=== PATIENT | female | born 1970 | race Caucasian/White ===

== ENCOUNTER → 2016-11-28 | Outpatient (CLI) | payer OTHER ==
[~2016-11-28] MED LIST: OMEP20TA62 PO
[2016-11-28 19:00] LABS: HEMOGLOBIN 13.5 g/dL (11.7-16.4)
[2016-11-28 19:13] LABS: ASPARTATE AMINO TRANSFERASE 16 U/L (15-37); BLOOD UREA NITROGEN 39 mg/dL (7-18)
== END | disposition home or self-care (01) ==
LOC: RAD 17:02
PROVIDERS: ATTEND Surgery
DX: N28.1 Cyst of kidney, acquired (principal); K29.60 Other gastritis without bleeding; R53.81 Other malaise; R53.83 Other fatigue; Z90.3 Acquired absence of stomach [part of]; Z90.49 Acquired absence of other specified parts of digestive tract; Z98.890 Other specified postprocedural states
CPT/HCPCS: 36415; 74176; 80053; 85025

== ENCOUNTER 2016-12-03 11:30 | Inpatient (IN) | payer OTHER ==
[~2016-12-03] VITALS: Ht 170.2 cm; Wt 96.0 kg
[2016-12-03] MEDS: PLEASE ENTER ALLERGIES MC SCH ×4 (13:00→19:48)
[2016-12-03] MEDS ORDERED: SODIUM CHLORIDE FLUSH 10ML SYR IVF ONE (13:00)
[2016-12-03] MEDS ORDERED: FAMOTIDINE 20 MG/2 ML IVP ONE (13:00)
[2016-12-03] MEDS ORDERED: HYDROmorphone 1 MG/ML, 1ML IVPush PRN (13:00)
[2016-12-03] MEDS ORDERED: SODIUM CHLORIDE 0.9% 1,000ML IVBOLUS ONE (13:00)
[2016-12-03] MEDS ORDERED: ONDANSETRON 2MG/ML, 2ML IVPush ONE (13:00)
[2016-12-03 13:22] LABS: ASPARTATE AMINO TRANSFERASE 16 U/L (15-37); BLOOD UREA NITROGEN 46 mg/dL (7-18)
[2016-12-03] MEDS ORDERED: HYDROmorphone 1 MG/ML, 1ML ONE (13:42)
[2016-12-03] MEDS ORDERED: FAMOTIDINE 20 MG/2 ML ONE (13:43)
[2016-12-03] MEDS ORDERED: ONDANSETRON 2MG/ML, 2ML ONE (13:43)
[2016-12-03 14:41] LABS: ICTOTEST NEGATIVE
[2016-12-03] MEDS ORDERED: CEFTRIAXONE PMX 1GM/50ML 50 ML IV ONE (15:00)
[2016-12-03] MEDS ORDERED: PROMETHAZINE 25 MG/ML, 1ML IM ONE (15:00)
[2016-12-03] MEDS ORDERED: HYDROcodone/APAP 5/325 TABLET PO PRN (16:00)
[2016-12-03] MEDS ORDERED: DOCUSATE 100 MG CAPSULE PO PRN (16:00)
[2016-12-03] MEDS ORDERED: POLYETHYLENE GLYCOL 17 GM PACKET PO PRN (16:00)
[2016-12-03] MEDS ORDERED: ACETAMINOPHEN 325 MG TABLET PO PRN (16:00)
[2016-12-03] MEDS ORDERED: LABETALOL 5MG/ML, 20ML IV PRN (16:00)
[2016-12-03] MEDS ORDERED: ONDANSETRON 2MG/ML, 2ML IVP PRN (16:00)
[2016-12-03] MEDS ORDERED: BISACODYL 10 MG SUPP PR PRN (16:00)
[2016-12-03] MEDS ORDERED: OMEP20TA62 PO (16:13)
[2016-12-03] MEDS ORDERED: PROMETHAZINE 25 MG/ML, 1ML ONE (16:21)
[2016-12-03] MEDS ORDERED: CEFTRIAXONE PMX 1GM/50ML 50 ML ONE (16:23)
[2016-12-03 16:36] LABS: POTASSIUM,URINE RANDOM 28 mmol/L
[2016-12-03] MEDS ORDERED: CEFTRIAXONE PMX 1GM/50ML 50 ML IV SCH (18:00)
[2016-12-03] MEDS: SODIUM CHLORIDE 0.9% 1,000 ML IV SCH (19:47)
[2016-12-03] MEDS: HEPARIN 5,000 UNITS/ML, 1ML SQ SCH (20:58)
[2016-12-03 21:45] VITALS: BP 113/75
[2016-12-03] MEDS: MORPHINE SULFATE 4 MG/ML, 1ML IVPush PRN (23:08)
[2016-12-04 02:25] VITALS: BP 90/58
[2016-12-04] MEDS: SODIUM CHLORIDE 0.9% 1,000 ML IV SCH ×3 (05:11→22:27)
[2016-12-04] MEDS: HEPARIN 5,000 UNITS/ML, 1ML SQ SCH ×3 (05:18→22:27)
[2016-12-04 05:49] LABS: BLOOD UREA NITROGEN 40 mg/dL (7-18)
[2016-12-04 08:20] VITALS: BP 90/59
[2016-12-04 12:51] VITALS: BP 93/63
[2016-12-04] MEDS: CEFTRIAXONE PMX 1GM/50ML 50 ML IV SCH (16:17)
[2016-12-04 18:36] VITALS: BP 90/55
[2016-12-05 02:00] VITALS: BP 93/65
[2016-12-05] MEDS: MORPHINE SULFATE 4 MG/ML, 1ML IVPush PRN (03:51)
[2016-12-05] MEDS: HEPARIN 5,000 UNITS/ML, 1ML SQ SCH ×3 (04:54→22:01)
[2016-12-05 05:37] LABS: BLOOD UREA NITROGEN 30 mg/dL (7-18)
[2016-12-05] MEDS ORDERED: PROPOFOL 10 MG/ML, 20ML ONE (07:04)
[2016-12-05] MEDS ORDERED: NEOSTIGMINE 1 MG/ML, 10ML ONE (07:04)
[2016-12-05] MEDS ORDERED: MIDAZOLAM 1 MG/ML, 2ML ONE (07:04)
[2016-12-05] MEDS ORDERED: ROCURONIUM 10 MG/ML ONE (07:04)
[2016-12-05] MEDS ORDERED: FENTANYL PF 100 MCG/2ML ONE (07:04)
[2016-12-05] MEDS ORDERED: GLYCOPYRROLATE 0.2MG/1ML ONE (07:04)
[2016-12-05] MEDS ORDERED: DEXAMETHASONE 4 MG/ML, 1ML ONE (07:04)
[2016-12-05] MEDS ORDERED: SUCCINYLCHOLINE 20 MG/ML, 10ML ONE (07:04)
[2016-12-05] MEDS ORDERED: ONDANSETRON 2MG/ML, 2ML ONE ×2 (07:04)
[2016-12-05] MEDS ORDERED: ACETAMINOPHEN 325 MG TABLET PO PRN (08:00)
[2016-12-05] MEDS ORDERED: ALBUTEROL SULFATE 2.5 MG/3 ML NPPB PRN (08:00)
[2016-12-05] MEDS ORDERED: LABETALOL 5MG/ML, 20ML IV PRN (08:00)
[2016-12-05] MEDS ORDERED: hydrALAzine 20 MG/ML, 1ML IV PRN (08:00)
[2016-12-05] MEDS ORDERED: OXYcodone 5 MG/5 ML ORAL.SOL UDC PO PRN (08:00)
[2016-12-05] MEDS ORDERED: MIDAZOLAM 1 MG/ML, 2ML IV PRN (08:00)
[2016-12-05] MEDS ORDERED: ONDANSETRON 2MG/ML, 2ML IVPush PRN (08:00)
[2016-12-05] MEDS ORDERED: HYDROmorphone 1 MG/ML, 1ML IV PRN (08:00)
[2016-12-05] MEDS ORDERED: METOPROLOL 1 MG/ML, 5ML IV PRN (08:00)
[2016-12-05] MEDS ORDERED: FENTANYL PF 100 MCG/2ML IV PRN (08:00)
[2016-12-05] MEDS ORDERED: PROMETHAZINE 25 MG/ML, 1ML IV PRN (08:00)
[2016-12-05] MEDS ORDERED: EPHEDRINE 50 MG/ML, 1ML IVPush PRN (08:00)
[2016-12-05] MEDS: SODIUM CHLORIDE 0.9% 1,000 ML IV SCH (08:57)
[2016-12-05 10:48] VITALS: BP 118/82
[2016-12-05] MEDS: SODIUM CHLORIDE 0.45% 1,000 ML IV SCH ×2 (11:26→21:30)
[2016-12-05 13:12] VITALS: BP 111/74
[2016-12-05] MEDS: CEFTRIAXONE PMX 1GM/50ML 50 ML IV SCH (16:17)
[2016-12-05 21:05] VITALS: BP 117/82
[2016-12-06 03:00] VITALS: BP 95/65
[2016-12-06] MEDS: HEPARIN 5,000 UNITS/ML, 1ML SQ SCH (06:22)
[2016-12-06] MEDS: SODIUM CHLORIDE 0.45% 1,000 ML IV SCH (06:23)
[2016-12-06 06:54] VITALS: BP 111/70
[2016-12-06] MEDS ORDERED: AMOX1TAB64 PO (11:12)
[2016-12-06 11:30] VITALS: BP 110/62
== END 2016-12-06 11:54 | disposition home or self-care (01) | DRG 393 ==
LOC: ED 12:16 → EDIP 14:57 → 4NOR 17:44
PROVIDERS: ADMIT Hospitalist; ATTEND Hospitalist
PROC: 0D768ZZ Dilation of Stomach, Via Natural or Artificial Opening Endoscopic (ICD-10-PCS; principal; 2016-12-03)
PROC: 0T9B70Z Drainage of Bladder with Drainage Device, Via Natural or Artificial Opening (ICD-10-PCS; 2016-12-03)
DX: K95.09 Other complications of gastric band procedure (principal); N17.0 Acute kidney failure with tubular necrosis; N39.0 Urinary tract infection, site not specified; E87.2 Acidosis; E87.0 Hyperosmolality and hypernatremia; Q60.0 Renal agenesis, unilateral; N18.4 Chronic kidney disease, stage 4 (severe); E86.0 Dehydration; Y83.8 Other surgical procedures as the cause of abnormal reaction of the patient, or of later complication, without mention of misadventure at the time of the procedure; I12.9 Hypertensive chronic kidney disease with stage 1 through stage 4 chronic kidney disease, or unspecified chronic kidney disease; Z98.84 Bariatric surgery status; Y92.9 Unspecified place or not applicable; Z90.49 Acquired absence of other specified parts of digestive tract; Z90.710 Acquired absence of both cervix and uterus
CPT/HCPCS: 36415; 74020; 76770; 80048; 80053; 81001; 82436; 82570; 83690; 84133; 84300; 85025; 87086; 96361; 96365; 96366; 96372; 96375; J0696; J1100; J1170; J1644; J2250; J2405; J2550; J2704; J2710; J3010; J3490; J0330; J7030; S0028

== ENCOUNTER → 2017-10-23 | Outpatient (CLI) | payer OTHER ==
[~2017-10-23] MED LIST changes: +AMOX1TAB64 PO; +BIOT25005 PO; +CALC0.25 PO; +CYAN250013 PO; +ERGO500017 PO; +MULT-224 PO; +MULT-672 PO
[2017-10-23 11:15] LABS: BASOPHILS # (AUTO) 0.03 x10^3/uL (0-0.1); BASOPHILS % (AUTO) 1 % (0-1); EOSINOPHILS # (AUTO) 0.08 x10^3/uL (0-0.4); EOSINOPHILS % (AUTO) 2 % (1-7); LYMPHOCYTES # (AUTO) 1.49 x10^3/uL (1-3.4); LYMPHOCYTES % (AUTO) 27 % (22-44); MD NO; MEAN CORPUSCULAR HEMOGLOBIN 31.9 pg (27.0-34.8); MEAN CORPUSCULAR HGB CONC 33.5 g/dL (32.4-35.8); MEAN CORPUSCULAR VOLUME 95.2 fL (80-100); MEAN PLATELET VOLUME 8.4 fL (7.4-10.4); MONOCYTES # (AUTO) 0.34 x10^3/uL (0.2-0.8); MONOCYTES % (AUTO) 6 % (2-9); NEUTROPHILS # (AUTO) 3.57 x10^3/uL (1.8-6.8); NEUTROPHILS % (AUTO) 65 % (42-75); PLATELET COUNT 227 x10^3/uL (130-400); RED BLOOD COUNT 3.52 x10^6/uL (3.82-5.3); RED CELL DISTRIBUTION WIDTH 13.8 % (9.6-15.2)
[2017-10-23 11:28] LABS: ALBUMIN 3.9 g/dL (3.4-5.0); ANION GAP 7 mmol/L (5-15); CALCIUM 8.9 mg/dL (8.5-10.1); CHLORIDE 115 mmol/L (98-107)
[2017-10-23 11:31] LABS: INTERNATIONAL NORMALIZED RATIO 1.02 (0.93-1.1); PROTHROMBIN TIME 10.5 Seconds (9.6-11.5)
[2017-10-23 11:32] LABS: ALANINE AMINOTRANSFERASE 21 U/L (12-78); ALKALINE PHOSPHATASE 55 U/L (45-117); BILIRUBIN,TOTAL 0.4 mg/dL (0.2-1.0); CREATININE 2.87 mg/dL (0.55-1.02); TOTAL PROTEIN 7.3 g/dL (6.4-8.2)
== END | disposition home or self-care (01) ==
LOC: STAR 10:15
PROVIDERS: ATTEND Surgery Vascular Surgery
DX: Z01.818 Encounter for other preprocedural examination (principal); R79.1 Abnormal coagulation profile
CPT/HCPCS: 36415; 80053; 85025; 85610; 85730; 93005

== ENCOUNTER 2017-10-31 21:54 | Emergency (ER) | payer OTHER ==
[~2017-10-31] VITALS: Ht 170.2 cm; Wt 63.5 kg
[2017-10-31 22:50] LABS: RAPID INFLUENZA A Negative (Negative); RAPID INFLUENZA B POSITIVE (Negative)
[2017-11-01] MEDS ORDERED: ACETAMINOPHEN 500 MG TABLET ONE (00:48)
[2017-11-01 00:54] VITALS: BP 124/82
[2017-11-01] MEDS ORDERED: ACETAMINOPHEN 500 MG TABLET PO ONE (01:00)
== END 2017-11-01 00:55 | disposition home or self-care (01) ==
LOC: ED 23:58
DX: J11.1 Influenza due to unidentified influenza virus with other respiratory manifestations (principal); Z90.49 Acquired absence of other specified parts of digestive tract; I10 Essential (primary) hypertension
CPT/HCPCS: 71046; 87400; 93005; 99285

== ENCOUNTER 2017-11-30 07:21 | Day surgery (SDC) | payer OTHER ==
[~2017-11-30] VITALS: Ht 171.4 cm; Wt 63.6 kg
[~2017-11-30 07:21] MED LIST changes: +BUPIVACAINE/PF 0.5% ONE; +HEPARIN 1,000 UNITS/ML, 10ML ONE
[2017-11-30] MEDS ORDERED: LIDOCAINE-MPF 1%, 2ML ONE (09:15)
[2017-11-30] MEDS ORDERED: SODIUM CHLORIDE 0.9% 1,000 ML IV SCH (09:16)
[2017-11-30 09:18] VITALS: BP 117/68
[2017-11-30] MEDS ORDERED: LIDOCAINE-MPF 1%, 2ML INFIL ONE (09:30)
[2017-11-30] MEDS ORDERED: SCOPOLAMINE PATCH, 1.5MG PATCH.TD72 TD ONE ×2 (10:44→12:23)
[2017-11-30] MEDS ORDERED: MIDAZOLAM 1 MG/ML, 2ML ONE (11:34)
[2017-11-30] MEDS ORDERED: FENTANYL PF 250 MCG/5ML ONE (11:38)
[2017-11-30] MEDS ORDERED: PROPOFOL 10 MG/ML, 20ML ONE (11:38)
[2017-11-30] MEDS ORDERED: CEFAZOLIN 1,000 MG ONE ×3 (11:39)
[2017-11-30] MEDS ORDERED: SODIUM CHLORIDE 0.9% PF 10ML ONE (11:39)
[2017-11-30] MEDS ORDERED: ROCURONIUM 10 MG/ML,10ML ONE (11:40)
[2017-11-30] MEDS ORDERED: GLYCOPYRROLATE 0.4 MG/2 ML, 2ML ONE (11:41)
[2017-11-30] MEDS ORDERED: NEOSTIGMINE 1 MG/ML, 10ML ONE (11:41)
[2017-11-30] MEDS ORDERED: ONDANSETRON 2MG/ML, 2ML ONE ×2 (11:42→12:32)
[2017-11-30] MEDS ORDERED: ONDANSETRON 2MG/ML, 2ML IVPush PRN (12:30)
[2017-11-30] MEDS ORDERED: hydrALAzine 20 MG/ML, 1ML IV PRN (12:30)
[2017-11-30] MEDS ORDERED: HYDROmorphone 1 MG/ML, 1ML IV PRN (12:30)
[2017-11-30] MEDS ORDERED: PROMETHAZINE 12.5 MG SUPP PR PRN (12:30)
[2017-11-30] MEDS ORDERED: PROMETHAZINE 25 MG/ML, 1ML IV PRN (12:30)
[2017-11-30] MEDS ORDERED: morphine SULFATE 10 MG/ML, 1ML IV PRN (12:30)
[2017-11-30] MEDS ORDERED: ACETAMINOPHEN 325 MG TABLET PO PRN (12:30)
[2017-11-30] MEDS ORDERED: OXYcodone 5 MG/5 ML ORAL.SOL UDC PO PRN (12:30)
[2017-11-30] MEDS ORDERED: METOCLOPRAMIDE 5 MG/ML, 2ML IV PRN (12:30)
[2017-11-30] MEDS ORDERED: LABETALOL 5MG/ML, 20ML IV PRN (12:30)
[2017-11-30] MEDS ORDERED: DEXAMETHASONE 4 MG/ML, 1ML ONE ×2 (12:32)
[2017-11-30] MEDS ORDERED: EPINEPHRINE 1 MG/ML, 1ML INFIL ONE (13:08)
[2017-11-30] MEDS ORDERED: METOCLOPRAMIDE 5 MG/ML, 2ML ONE (13:53)
[2017-11-30] MEDS ORDERED: OXYcodone 5 MG/5 ML ORAL.SOL UDC ONE (13:58)
[2017-11-30] MEDS ORDERED: FENTANYL PF 100 MCG/2ML ONE (14:02)
[2017-11-30] MEDS: FENTANYL PF 100 MCG/2ML IV PRN ×2 (14:03→14:20)
[2017-11-30] MEDS ORDERED: PROTAMINE SULFATE 10 MG/ML, 5ML ONE (14:55)
== END 2017-11-30 16:50 ==
LOC: OUT 07:21
PROVIDERS: ATTEND Surgery Vascular Surgery
DX: N19 Unspecified kidney failure (principal); Z88.6 Allergy status to analgesic agent
CPT/HCPCS: 36415; 36821; 49324; 80047; C1750; J0171; J0690; J1100; J1644; J2250; J2405; J2704; J2710; J2720; J2765; J3010; J3490; J7030

== ENCOUNTER 2017-12-02 12:54 | Emergency (ER) | payer OTHER ==
[~2017-12-02] VITALS: Ht 170.2 cm; Wt 66.7 kg
[~2017-12-02 12:54] MED LIST changes: -BUPIVACAINE/PF 0.5% ONE; -HEPARIN 1,000 UNITS/ML, 10ML ONE
[2017-12-02 12:55] VITALS: BP 134/87
[2017-12-02] MEDS ORDERED: SODIUM CHLORIDE FLUSH 10ML SYR IVF ONE (13:30)
[2017-12-02 13:42] LABS: BASOPHILS # (AUTO) 0.04 x10^3/uL (0-0.1); BASOPHILS % (AUTO) 1 % (0-1); EOSINOPHILS # (AUTO) 0.24 x10^3/uL (0-0.4); EOSINOPHILS % (AUTO) 3 % (1-7); LYMPHOCYTES # (AUTO) 2.12 x10^3/uL (1-3.4); LYMPHOCYTES % (AUTO) 26 % (22-44); MD NO; MEAN CORPUSCULAR HEMOGLOBIN 32.4 pg (27.0-34.8); MEAN CORPUSCULAR HGB CONC 33.3 g/dL (32.4-35.8); MEAN CORPUSCULAR VOLUME 97.1 fL (80-100); MEAN PLATELET VOLUME 8.6 fL (7.4-10.4); MONOCYTES # (AUTO) 0.47 x10^3/uL (0.2-0.8); MONOCYTES % (AUTO) 6 % (2-9); NEUTROPHILS # (AUTO) 5.39 x10^3/uL (1.8-6.8); NEUTROPHILS % (AUTO) 65 % (42-75); PLATELET COUNT 177 x10^3/uL (130-400); RED CELL DISTRIBUTION WIDTH 14.4 % (9.6-15.2)
[2017-12-02 13:51] LABS: ALANINE AMINOTRANSFERASE 14 U/L (12-78); ALBUMIN 3.9 g/dL (3.4-5.0); ANION GAP 6 mmol/L (5-15); CALCIUM 8.7 mg/dL (8.5-10.1); CHLORIDE 112 mmol/L (98-107); CREATININE 3.03 mg/dL (0.55-1.02)
[2017-12-02 13:53] LABS: ALKALINE PHOSPHATASE 57 U/L (45-117); BILIRUBIN,TOTAL 0.3 mg/dL (0.2-1.0); TOTAL PROTEIN 7.4 g/dL (6.4-8.2)
[2017-12-02] MEDS ORDERED: FLUORESCEIN OPHTHALMIC 1 MG STRIP EACHEYE ONE (15:30)
[2017-12-02] MEDS ORDERED: PROPARACAINE OPHTH 0.5%, 15ML EACHEYE ONE (15:30)
[2017-12-02] MEDS ORDERED: PROPARACAINE OPHTH 0.5%, 15ML ONE (15:36)
[2017-12-02] MEDS ORDERED: FLUORESCEIN OPHTHALMIC 1 MG STRIP ONE (15:36)
== END 2017-12-02 17:51 | disposition home or self-care (01) ==
LOC: ED 17:30
DX: H54.7 Unspecified visual loss (principal); T44.3X5A Adverse effect of other parasympatholytics [anticholinergics and antimuscarinics] and spasmolytics, initial encounter; Y92.89 Other specified places as the place of occurrence of the external cause; I10 Essential (primary) hypertension; G43.909 Migraine, unspecified, not intractable, without status migrainosus; Z90.49 Acquired absence of other specified parts of digestive tract
CPT/HCPCS: 36415; 80053; 85025; 99284

== ENCOUNTER 2018-04-04 10:16 | Emergency (ER) | payer OTHER ==
[~2018-04-04] VITALS: Ht 170.2 cm; Wt 62.9 kg
[2018-04-04] MEDS ORDERED: SODIUM CHLORIDE 0.9% 1,000ML IVBOLUS ONE (11:00)
[2018-04-04 11:18] LABS: BASOPHILS # (AUTO) 0.05 x10^3/uL (0-0.1); BASOPHILS % (AUTO) 0 % (0-1); EOSINOPHILS # (AUTO) 0.05 x10^3/uL (0-0.4); EOSINOPHILS % (AUTO) 1 % (1-7); LYMPHOCYTES # (AUTO) 0.98 x10^3/uL (1-3.4); LYMPHOCYTES % (AUTO) 9 % (22-44); MD NO; MEAN CORPUSCULAR HEMOGLOBIN 32.8 pg (27.0-34.8); MEAN CORPUSCULAR VOLUME 96.6 fL (80-100); MEAN PLATELET VOLUME 8.9 fL (7.4-10.4); MONOCYTES % (AUTO) 6 % (2-9); NEUTROPHILS # (AUTO) 9.36 x10^3/uL (1.8-6.8); NEUTROPHILS % (AUTO) 85 % (42-75); PLATELET COUNT 182 x10^3/uL (130-400); RED BLOOD COUNT 4.15 x10^6/uL (3.82-5.3); RED CELL DISTRIBUTION WIDTH 13.3 % (9.6-15.2)
[2018-04-04 11:23] LABS: ALANINE AMINOTRANSFERASE 26 U/L (12-78); ANION GAP 7 mmol/L (5-15); CALCIUM 9.1 mg/dL (8.5-10.1); CHLORIDE 114 mmol/L (98-107); CREATININE 3.18 mg/dL (0.55-1.02)
[2018-04-04 11:25] LABS: ALKALINE PHOSPHATASE 74 U/L (45-117); BILIRUBIN,TOTAL 0.8 mg/dL (0.2-1.0)
[2018-04-04 11:48] VITALS: BP 121/78
[2018-04-04 12:23] LABS: MICROSCOPIC AUTO
[2018-04-04 12:24] LABS: CULTURE INDICATED? NO
== END 2018-04-04 12:46 | disposition home or self-care (01) ==
LOC: ED 12:26
DX: K21.9 Gastro-esophageal reflux disease without esophagitis (principal); I10 Essential (primary) hypertension
CPT/HCPCS: 36415; 71045; 74220; 80053; 81001; 83690; 85025; 93005; 96360; 99285; J7030

== ENCOUNTER 2018-07-12 08:10 | Day surgery (SDC) | payer OTHER ==
[~2018-07-12] VITALS: Ht 170.2 cm; Wt 62.0 kg
[~2018-07-12 08:10] MED LIST changes: +ACET-1600 PO; +BOTOX INJ; +BUPIVACAINE/PF-EPI 0.5% 1:200K ONE; +HEPARIN 1,000 UNITS/ML, 10ML ONE; +LIQUID IRON; +PROTAMINE SULFATE 10 MG/ML, 5ML ONE
[2018-07-12 08:40] VITALS: BP 130/77
[2018-07-12] MEDS ORDERED: SODIUM CHLORIDE 0.9% 1,000 ML IV SCH (09:02)
[2018-07-12] MEDS ORDERED: DEXAMETHASONE 4 MG/ML, 5ML ONE (10:09)
[2018-07-12] MEDS ORDERED: ONDANSETRON 2MG/ML, 2ML ONE (10:09)
[2018-07-12] MEDS ORDERED: PROPOFOL 10 MG/ML, 20ML ONE (10:09)
[2018-07-12] MEDS ORDERED: MIDAZOLAM 1 MG/ML, 2ML ONE (10:24)
[2018-07-12] MEDS ORDERED: FENTANYL PF 100 MCG/2ML ONE ×2 (10:24→11:24)
[2018-07-12] MEDS ORDERED: HEPARIN 1,000 UNITS/ML, 10ML DIALYCATH ONE (10:32)
[2018-07-12] MEDS ORDERED: ACETAMINOPHEN 650 MG/20.3 ML UDC ONE (11:21)
[2018-07-12] MEDS ORDERED: OXYcodone 5 MG/5 ML ORAL.SOL UDC ONE (11:21)
[2018-07-12] MEDS ORDERED: PROMETHAZINE 25 MG/ML, 1ML IV PRN (11:30)
[2018-07-12] MEDS ORDERED: MEPERIDINE/PF 25MG/0.5ML IVPush PRN (11:30)
[2018-07-12] MEDS ORDERED: ACETAMINOPHEN 325 MG TABLET PO PRN (11:30)
[2018-07-12] MEDS ORDERED: PROMETHAZINE 12.5 MG SUPP PR PRN (11:30)
[2018-07-12] MEDS ORDERED: LORazepam 2 MG/ML, 1ML IVPush PRN (11:30)
[2018-07-12] MEDS ORDERED: OXYcodone 5 MG/5 ML ORAL.SOL UDC PO PRN (11:30)
[2018-07-12] MEDS ORDERED: HALOPERIDOL 5 MG/ML IV PRN (11:30)
[2018-07-12] MEDS ORDERED: LABETALOL 5MG/ML, 20ML IV PRN (11:30)
[2018-07-12] MEDS ORDERED: ONDANSETRON ODT 8 MG PO PRN (11:30)
[2018-07-12] MEDS ORDERED: EPHEDRINE 50 MG/ML, 1ML IVPush PRN (11:30)
[2018-07-12] MEDS ORDERED: hydrALAzine 20 MG/ML, 1ML IV PRN (11:30)
[2018-07-12] MEDS ORDERED: FENTANYL PF 100 MCG/2ML IV PRN (11:30)
[2018-07-12] MEDS ORDERED: HYDROmorphone 1 MG/ML, 1ML IV PRN (11:30)
[2018-07-12] MEDS ORDERED: ALBUTEROL SULFATE 2.5 MG/3 ML NPPB PRN (11:30)
[2018-07-12] MEDS ORDERED: MIDAZOLAM 1 MG/ML, 2ML IV PRN (11:30)
[2018-07-12] MEDS ORDERED: ONDANSETRON 2MG/ML, 2ML IV PRN (11:30)
== END 2018-07-12 13:30 | disposition home or self-care (01) ==
LOC: OUT 08:10
PROVIDERS: ATTEND Surgery Vascular Surgery
DX: T82.590A Other mechanical complication of surgically created arteriovenous fistula, initial encounter (principal); Y83.8 Other surgical procedures as the cause of abnormal reaction of the patient, or of later complication, without mention of misadventure at the time of the procedure; Y92.89 Other specified places as the place of occurrence of the external cause; I12.0 Hypertensive chronic kidney disease with stage 5 chronic kidney disease or end stage renal disease; N18.6 End stage renal disease; E78.5 Hyperlipidemia, unspecified; D64.9 Anemia, unspecified; I10 Essential (primary) hypertension; Z79.899 Other long term (current) drug therapy; Z90.49 Acquired absence of other specified parts of digestive tract; Z90.710 Acquired absence of both cervix and uterus; Z98.51 Tubal ligation status; Z98.890 Other specified postprocedural states; Z88.8 Allergy status to other drugs, medicaments and biological substances
CPT/HCPCS: 37607; J1100; J1644; J2250; J2405; J2704; J3010; J7030; J2720

== ENCOUNTER 2018-09-27 08:57 | Emergency (ER) | payer OTHER ==
[~2018-09-27] VITALS: Ht 170.2 cm; Wt 63.6 kg
[~2018-09-27 08:57] MED LIST changes: -BUPIVACAINE/PF-EPI 0.5% 1:200K ONE; -HEPARIN 1,000 UNITS/ML, 10ML ONE; -PROTAMINE SULFATE 10 MG/ML, 5ML ONE
[2018-09-27 09:53] LABS: MICROSCOPIC AUTO
[2018-09-27 09:54] LABS: CULTURE INDICATED? YES
--- NOTE | 2018-09-27 11:10 | NUR ---
TO ROOM FROM LOBBY
[2018-09-27 11:20] LABS: BASOPHILS # (AUTO) 0.05 x10^3/uL (0-0.1); BASOPHILS % (AUTO) 1 % (0-1); EOSINOPHILS # (AUTO) 0.06 x10^3/uL (0-0.4); EOSINOPHILS % (AUTO) 1 % (1-7); LYMPHOCYTES # (AUTO) 1.45 x10^3/uL (1-3.4); LYMPHOCYTES % (AUTO) 24 % (22-44); MD NO; MEAN CORPUSCULAR HEMOGLOBIN 31.9 pg (27.0-34.8); MEAN CORPUSCULAR HGB CONC 33.1 g/dL (32.4-35.8); MEAN CORPUSCULAR VOLUME 96.4 fL (80-100); MEAN PLATELET VOLUME 8.4 fL (7.4-10.4); MONOCYTES # (AUTO) 0.35 x10^3/uL (0.2-0.8); MONOCYTES % (AUTO) 6 % (2-9); NEUTROPHILS # (AUTO) 4.25 x10^3/uL (1.8-6.8); NEUTROPHILS % (AUTO) 69 % (42-75); PLATELET COUNT 183 x10^3/uL (130-400); RED BLOOD COUNT 3.82 x10^6/uL (3.82-5.3); RED CELL DISTRIBUTION WIDTH 12.8 % (9.6-15.2)
--- NOTE | 2018-09-27 11:22 | NUR ---
Assumed care of patient. Seen outpatient for UTI symptoms on 09/08 and sent home woth Keflex. Changed to Macrobid after cultures resulted, then taken off Macrobid and placed on cipro d/t low GFR. Here today stating that even after 1 week of cipro her symptoms have not improved. C/O flank pain and bladder pain. at bedside. Will continue to monitor.
[2018-09-27 11:35] LABS: ALBUMIN 3.8 g/dL (3.4-5.0); ANION GAP 6 mmol/L (5-15); CALCIUM 9.1 mg/dL (8.5-10.1); CHLORIDE 115 mmol/L (98-107)
[2018-09-27 11:39] LABS: ALANINE AMINOTRANSFERASE 20 U/L (12-78); ALKALINE PHOSPHATASE 66 U/L (45-117); BILIRUBIN,TOTAL 0.5 mg/dL (0.2-1.0); CREATININE 3.24 mg/dL (0.55-1.02); TOTAL PROTEIN 7.2 g/dL (6.4-8.2)
--- NOTE | 2018-09-27 12:03 | NUR ---
TASK RN: GEN VANCE UA COLLECTED AND SENT TO LAB
[2018-09-27 12:23] LABS: MICROSCOPIC AUTO
[2018-09-27 12:24] LABS: CULTURE INDICATED? NO
[2018-09-27] MEDS ORDERED: ONDANSETRON ODT 4 MG ONE (13:56)
[2018-09-27] MEDS ORDERED: ONDANSETRON ODT 4 MG PO ONE (14:00)
[2018-09-27 14:54] VITALS: BP 118/73
== END 2018-09-27 14:56 | disposition home or self-care (01) ==
LOC: ED 13:21
DX: R10.9 Unspecified abdominal pain (principal); R30.0 Dysuria; I10 Essential (primary) hypertension; Z90.49 Acquired absence of other specified parts of digestive tract; K21.9 Gastro-esophageal reflux disease without esophagitis
CPT/HCPCS: 36415; 80053; 81001; 83690; 85025; 87086; 99283; Q0162